=== PATIENT | male | born 1940 | race Caucasian/White ===

== ENCOUNTER 2017-05-13 12:04 | Outpatient (CLI) | payer OTHER | END 2017-05-13 12:05 | disposition home or self-care (01) | LOC: BICRAD 12:04 | PROVIDERS: ATTEND Chiropractor | DX: M54.2 Cervicalgia (principal); M99.01 Segmental and somatic dysfunction of cervical region; M47.892 Other spondylosis, cervical region; M48.02 Spinal stenosis, cervical region | CPT/HCPCS: 72050 ==

== ENCOUNTER 2020-09-19 15:18 | Outpatient (CLI) | payer MEDICARE ==
[2020-09-19 17:41] LABS: #Basophils 0.1 10x3/uL (0.0-0.2); #Eosinphils 0.2 10x3/uL (0.0-0.5); #Monocytes 1.5 10x3/uL (0.0-1.1); #Neutrophils 9.3 10x3/uL (1.5-8.4); %Basophils 0.4 % (0.0-2.0); %Eosinophils 1.4 % (0.0-6.0); %Lymphocytes 16.6 % (18.0-47.0); %Monocytes 11.2 % (0.0-10.0); %Neutrophils 69.9 % (40.0-75.0); Hemoglobin 15.6 g/dL (13.5-17.5); Mean Corpuscular HGB CONC 33.7 g/dL (32.0-36.0); Mean Corpuscular Hemoglobin 30.1 pg (27.0-33.0); Mean Corpuscular Volume 89.2 fl (81.2-95.1); Mean Platelet Volume 9.2 fl (7.4-10.4); Platelet Count 279 10x3/uL (150-450); RBC Distribution Width 13.2 % (11.5-14.5); Red Blood Cell (RBC) Count 5.19 10x6/uL (4.32-5.72); White Blood Cell (WBC) Count 13.3 10x3/uL (3.5-10.5)
[2020-09-19 17:51] LABS: Anion Gap 15 mmol/L (10-20); BUN (Urea Nitrogen) 23 mg/dL (8.4-25.7); Calc. Creatinine Clearance 0 mL/min (70-130); Calcium 10.5 mg/dL (7.8-10.44); Carbon Dioxide 22 mmol/L (23-31); Chloride 106 mmol/L (98-107); Glucose 98 mg/dL (83-110); Potassium 4.4 mmol/L (3.5-5.1); Sodium 139 mmol/L (136-145)
[2020-09-20 02:11] LABS: SARS-CoV-2 PCR by NAA Not Detected (NotDetected)
== END 2020-09-19 15:19 | disposition home or self-care (01) ==
LOC: LABBT 15:18
PROVIDERS: ATTEND Specialist
DX: Z01.818 Encounter for other preprocedural examination (principal); C25.9 Malignant neoplasm of pancreas, unspecified; Z20.822 Contact with and (suspected) exposure to COVID-19
CPT/HCPCS: 80048; 85025; U0003; U0005; 87635; 93005; 93010

== ENCOUNTER 2020-09-22 05:45 | Day surgery (SDC) | payer MEDICARE ==
[2020-09-21 11:20] VITALS: BMI 25.9
[2020-09-22] MEDS ORDERED: Acetaminophen 500 MG TAB ONE (06:14)
[2020-09-22] MEDS ORDERED: Ketorolac Tromethamine 30 MG/ML VIAL ONE (06:14)
[2020-09-22] MEDS ORDERED: Lidocaine 1% w/Epinephrine 1:100K 20 ML VIAL ONE (06:32)
[2020-09-22] MEDS ORDERED: Bupivacaine 0.25% HCL 30 ML VIAL ONE (06:32)
[2020-09-22] MEDS ORDERED: Phenylephrine 10 MG/ML VIAL ONE (07:27)
[2020-09-22] MEDS ORDERED: Fentanyl 100 MCG/2 ML VIAL ONE (07:27)
[2020-09-22] MEDS ORDERED: SUGAMMADEX SODIUM 200 MG/2 ML VIAL ONE (07:27)
[2020-09-22] MEDS ORDERED: Propofol 500 MG/50 ML VIAL ONE (07:31)
[2020-09-22] MEDS ORDERED: PHENYLEPHRINE-NS 100 MCG/ML 10 ML SYRINGE ONE (07:38)
[2020-09-22] MEDS ORDERED: Ondansetron PF 4 MG/2 ML Vial ONE (07:38)
== END 2020-09-22 10:00 | disposition home or self-care (01) ==
LOC: SDC 05:45
PROVIDERS: ATTEND Specialist
PROC: 0JH60WZ Insertion of Totally Implantable Vascular Access Device into Chest Subcutaneous Tissue and Fascia, Open Approach (ICD-10-PCS; principal; 2020-09-22)
PROC: 02HV33Z Insertion of Infusion Device into Superior Vena Cava, Percutaneous Approach (ICD-10-PCS; 2020-09-22)
DX: C25.9 Malignant neoplasm of pancreas, unspecified (principal); E78.5 Hyperlipidemia, unspecified; N40.0 Benign prostatic hyperplasia without lower urinary tract symptoms; Z87.891 Personal history of nicotine dependence; Z79.899 Other long term (current) drug therapy
CPT/HCPCS: 71045; C1788; J0690; J1642; J1885; J2370; J2405; J2704; J3010; S0020

== ENCOUNTER 2021-06-19 10:23 | Outpatient (CLI) | payer MEDICARE ==
[~2021-06-19 10:23] MED LIST: Iopamidol 370 76% 100 ML VIAL ONE
== END 2021-06-19 10:24 | disposition home or self-care (01) ==
LOC: CT 10:23
PROVIDERS: ATTEND Internal Medicine Hematology & Oncology
DX: C25.3 Malignant neoplasm of pancreatic duct (principal); Z90.49 Acquired absence of other specified parts of digestive tract; R91.8 Other nonspecific abnormal finding of lung field
CPT/HCPCS: 71260; 74177; 82565

== ENCOUNTER 2021-12-18 10:24 | Outpatient (CLI) | payer MEDICARE ==
[2021-12-18] MEDS ORDERED: Iopamidol 370 76% 100 ML VIAL ONE (15:50)
== END 2021-12-18 10:25 | disposition home or self-care (01) ==
LOC: CT 10:24
PROVIDERS: ATTEND Internal Medicine Hematology & Oncology
DX: C25.3 Malignant neoplasm of pancreatic duct (principal); R91.1 Solitary pulmonary nodule; K91.872 Postprocedural seroma of a digestive system organ or structure following a digestive system procedure
CPT/HCPCS: 71260; 74177; Q9967

== ENCOUNTER 2022-08-07 10:26 | Outpatient (CLI) | payer MEDICARE | END 2022-08-07 10:27 | disposition home or self-care (01) | LOC: BICCT 10:26 | PROVIDERS: ATTEND Internal Medicine Hematology & Oncology | DX: C25.3 Malignant neoplasm of pancreatic duct (principal) | CPT/HCPCS: 74177; 82565 ==

== ENCOUNTER 2023-02-11 10:34 | Outpatient (CLI) | payer MEDICARE ==
[2023-02-11] MEDS ORDERED: Iopamidol 370 76% 100 ML VIAL ONE (14:17)
== END 2023-02-11 10:35 | disposition home or self-care (01) ==
LOC: BICCT 10:34
PROVIDERS: ATTEND Internal Medicine Hematology & Oncology
DX: C25.3 Malignant neoplasm of pancreatic duct (principal); Z98.890 Other specified postprocedural states
CPT/HCPCS: 74177; 82565